=== PATIENT | female | born 1945 | race Caucasian/White ===

== ENCOUNTER 2018-04-19 06:42 | Inpatient (IN) | payer OTHER ==
[~2018-04-19] VITALS: Ht 165.1 cm; Wt 101.5 kg
[2018-04-19 07:28] LABS: BASOPHIL (%) 0.3 % (0-1); BASOPHIL COUNT 0.1 K/uL (0-0.1); EOSINOPHIL (%) 0.2 % (0-5); HEMOGLOBIN 13.7 G/DL (11.9-15.5); IMMATURE GRANULOCYTE (%) 0.9 % (0.0-0.7); LYMPHOCYTE (%) 11.3 % (15-42); LYMPHOCYTE COUNT 2.2 K/uL (1.0-2.8); MCHC 32.6 G/DL (30.0-36.0); MONOCYTE (%) 6.6 % (3-12); MONOCYTE COUNT 1.3 K/uL (0-0.8); NEUTROPHIL (%) 80.7 % (45-76); NEUTROPHIL COUNT 15.5 K/uL (1.8-6.4); PLATELET COUNT 262 K/uL (156-360); RBC DIS.WIDTH-CV 13.9 % (11.8-14.6); RBC DIS.WIDTH-SD 49.1 % (39-53); RED BLOOD COUNT 4.42 M/uL (3.80-5.20); WHITE BLOOD COUNT 19.2 K/uL (4.1-10.2)
[2018-04-19 07:45] LABS: CHLORIDE 105 MEQ/L (99-109); POTASSIUM 4.4 MEQ/L (3.7-5.4); SODIUM 139 MEQ/L (136-147)
[2018-04-19 07:51] LABS: CREATININE 0.8 MG/DL (0.6-1.3); GFR ESTIMATE (CALCULATED) > 59 mL/min/; GLUCOSE 110 mg/dL (70-99); UREA NITROGEN (BUN) 24 mg/dL (9-23)
[2018-04-19 07:55] LABS: TROP-I INTERPRETATION NEGATIVE; TROPONIN-I 0.01 ng/mL (0.0-0.30)
[2018-04-19 11:20] VITALS: BP 131/61
[2018-04-19] MEDS ORDERED: COUGH SYRU100 MG/5 M PO (11:41)
[2018-04-19] MEDS ORDERED: ALBUTEROL2.5 MG/3 M IH (11:43)
[2018-04-19] MEDS ORDERED: BENADRYL25 MG PO (11:43)
[2018-04-19] MEDS ORDERED: METOPROLOL TART50 MG PO (11:45)
[2018-04-19] MEDS ORDERED: VENTOLIN HFA18 GM IH (11:45)
[2018-04-19] MEDS ORDERED: SYMBICORT60 INHALAT IH (11:46)
[2018-04-19] MEDS ORDERED: CALCIUM 600 +1 EAC3 PO (11:46)
[2018-04-19] MEDS ORDERED: ALENDRONATE SOD70 MG PO (11:46)
[2018-04-19] MEDS ORDERED: ASPIR-LOW81 MG PO (11:46)
[2018-04-19] MEDS ORDERED: VITAMIN B-12250 MCG PO (11:49)
[2018-04-19] MEDS ORDERED: CRESTOR20 MG PO (11:50)
[2018-04-19] MEDS ORDERED: CARDIZEM CD,CA240 MG PO (11:50)
[2018-04-19] MEDS ORDERED: CLARITIN,ALAVAR10 MG PO (11:50)
[2018-04-19] MEDS ORDERED: LOSARTAN POTAS100 MG PO (11:51)
[2018-04-19] MEDS ORDERED: FLECAINIDE ACE100 MG PO (11:51)
[2018-04-19] MEDS ORDERED: AMOXICILLIN500 MG PO (11:52)
[2018-04-19 15:21] VITALS: BP 109/58
[2018-04-19 19:00] VITALS: BP 132/68
[2018-04-19 21:50] LABS: TROP-I INTERPRETATION NEGATIVE; TROPONIN-I 0.02 ng/mL (0.0-0.30)
[2018-04-19 22:34] VITALS: BP 161/71
[2018-04-19 22:36] LABS: PTT 26.8 SEC (25-37)
[2018-04-19 23:42] VITALS: BP 124/70
[2018-04-20 04:00] VITALS: BP 134/79
[2018-04-20 05:25] LABS: CHLORIDE 105 mEq/L (99-109); POTASSIUM 4.3 mEq/L (3.7-5.4); SODIUM 137 mEq/L (136-147); TROP-I INTERPRETATION NEGATIVE; TROPONIN-I < 0.01 ng/mL (0.0-0.30)
[2018-04-20 05:29] LABS: GLUCOSE 209 mg/dL (70-99)
[2018-04-20 05:30] LABS: CREATININE 0.8 mg/dL (0.6-1.3); GFR ESTIMATE (CALCULATED) > 59 mL/min/
[2018-04-20 05:31] LABS: UREA NITROGEN (BUN) 28 mg/dL (9-23)
[2018-04-20 07:05] VITALS: BP 185/78
[2018-04-20 10:38] LABS: TROP-I INTERPRETATION NEGATIVE; TROPONIN-I < 0.01 ng/mL (0.0-0.30)
[2018-04-20 11:25] VITALS: BP 134/60
[2018-04-20 15:29] VITALS: BP 137/65
[2018-04-20 20:30] VITALS: BP 147/67
[2018-04-21] VITALS: BP 139/72
[2018-04-21 03:48] VITALS: BP 144/76
[2018-04-21 07:20] VITALS: BP 142/67
[2018-04-21 09:35] LABS: BASOPHIL (%) 0.1 % (0-1); EOSINOPHIL (%) 0.1 % (0-5); HEMOGLOBIN 12.5 G/DL (11.9-15.5); IMMATURE GRANULOCYTE (%) 0.5 % (0.0-0.7); LYMPHOCYTE (%) 7.1 % (15-42); LYMPHOCYTE COUNT 1.2 K/uL (1.0-2.8); MCH 30.8 PG (29.0-34.0); MCHC 32.9 G/DL (30.0-36.0); MCV 93.6 FL (83-99); MONOCYTE (%) 4.5 % (3-12); MONOCYTE COUNT 0.7 K/uL (0-0.8); NEUTROPHIL (%) 87.7 % (45-76); NEUTROPHIL COUNT 14.3 K/uL (1.8-6.4); PLATELET COUNT 229 K/uL (156-360); RBC DIS.WIDTH-CV 14.3 % (11.8-14.6); RBC DIS.WIDTH-SD 48.9 % (39-53); RED BLOOD COUNT 4.06 M/uL (3.80-5.20); WHITE BLOOD COUNT 16.3 K/uL (4.1-10.2)
[2018-04-21 11:36] VITALS: BP 140/67
[2018-04-21] MEDS ORDERED: PREDNISONE5 MG PO (12:19)
== END 2018-04-21 13:50 | disposition home or self-care (01) | DRG 190 ==
LOC: EDBD 06:42 → EME 06:42 → 4EAST 09:07 → EDOF 09:07 → ENRESERV 09:09 → 4SOUTH 11:11 → ENRESERV 21:32 → 4EAST 21:40
PROVIDERS: Emergency Medicine; Family Medicine; Hospitalist; Internal Medicine
DX: J44.1 Chronic obstructive pulmonary disease with (acute) exacerbation (principal); J96.21 Acute and chronic respiratory failure with hypoxia; I10 Essential (primary) hypertension; E78.5 Hyperlipidemia, unspecified; R07.9 Chest pain, unspecified; E66.01 Morbid (severe) obesity due to excess calories; D72.829 Elevated white blood cell count, unspecified; Z68.36 Body mass index [BMI] 36.0-36.9, adult; F17.210 Nicotine dependence, cigarettes, uncomplicated; I48.2 Chronic atrial fibrillation; J98.11 Atelectasis
CPT/HCPCS: 71045; 71275; 80048; 82948; 84484; 85025; 85610; 85730; 87040; 93005; 93306; 94640; 94640 76; 94760; 94799; 99202; 99281; 99285; G0378; J0295; J0456; J0696; J1650; J2930; J7050; J7512